=== PATIENT | male | born 1995 | race Caucasian/White ===

== ENCOUNTER → 2016-11-27 | Outpatient (CLI) | payer OTHER, MEDICAID | LOC: FIMAGING 12:47 → EDSTATUS 12:48 | PROVIDERS: ATTEND Physician Assistant Surgical | DX: Z09 Encounter for follow-up examination after completed treatment for conditions other than malignant neoplasm (principal); Z98.1 Arthrodesis status; M43.12 Spondylolisthesis, cervical region ==

== ENCOUNTER → 2016-12-08 | Outpatient (CLI) | payer OTHER, MEDICAID | LOC: FIMAGING 13:11 | PROVIDERS: ATTEND Internal Medicine | DX: I82.513 Chronic embolism and thrombosis of femoral vein, bilateral (principal); G82.50 Quadriplegia, unspecified ==